=== PATIENT | female | born 1990 | race Hispanic/Latino ===

== ENCOUNTER 2019-03-17 19:46 | Emergency (ER) | payer OTHER ==
[2019-03-17 20:06] LABS: APPEARANCE,URINE Clear (CLEAR); BILIRUBIN,URINE Negative (NEGATIVE); COLOR,URINE Yellow (YELLOW); GLUCOSE, URINE (UA) Negative (NEGATIVE); KETONES,URINE Negative (NEGATIVE); LEUKOCYTE ESTERASE ,URINE Moderate (NEGATIVE); NITRATE,URINE Negative (NEGATIVE); OCCULT BLOOD,URINE Negative (NEGATIVE); PH,URINE 7.5 (5.0-8.0); PROTEIN,URINE Negative (NEGATIVE); UROBILINOGEN,URINE 0.2 mg/dL (0.2-1.0)
[2019-03-17 20:08] LABS: HCG,QUAL RESULT NEGATIVE (NEGATIVE)
[2019-03-17] MEDS ORDERED: KETOROLAC TROMETHAMINE 30MG/ML ONE (20:12)
[2019-03-17] MEDS ORDERED: SODIUM CHLORIDE 0.9% 1000ML 1,000 ML IV ONE (20:12)
[2019-03-17] MEDS ORDERED: ONDANSETRON HCL 4 MG/2 ML VIAL ONE (20:12)
[2019-03-17 20:19] LABS: BACTERIA,URINE Few /HPF (None Seen); TRICHOMONAS,URINE Few /LPF (None Seen)
[2019-03-17 20:20] LABS: SQUAMOUS EPITHELIAL CELL,UR Few /HPF (0-2)
[2019-03-17 20:21] LABS: MUCUS,URINE Few LPF (None Seen)
[2019-03-17 20:25] LABS: BASOPHILS % (AUTO) 0.3 % (0.0-5.0); EOSINOPHILS % (AUTO) 0.1 % (0.0-8.0); HEMATOCRIT 38.8 % (36-48); MEAN CORPUSCULAR HEMOGLOBIN 24.3 pg (27.0-33.0); MEAN CORPUSCULAR HGB CONC 31.2 g/dL (32.0-36.0); MEAN CORPUSCULAR VOLUME 77.9 fL (79-99); MONOCYTES % (AUTO) 5.4 % (3.0-13.0); NEUTROPHILS % (AUTO) 70.9 % (40.0-77.0); PLATELET COUNT (AUTO) 382 K/uL (130-400); RED BLOOD CELL COUNT(AUTO) 4.98 MIL/uL (4.00-5.50); RED CELL DISTRIBUTION WIDTH 14.5 % (11.0-15.5); WHITE BLOOD COUNT (AUTO) 15.1 K/uL (4.8-10.8)
[2019-03-17 20:37] LABS: CREATININE 0.8 mg/dL (0.5-1.5)
[2019-03-17 20:41] LABS: ALBUMIN 3.8 g/dL (3.5-5.0); BILIRUBIN,DIRECT 0.3 mg/dL (0.0-0.3); TOTAL PROTEIN, SERUM 8.4 g/dL (6.0-8.3)
[2019-03-17 21:37] LABS: AMPHET/METH SCREEN,URINE NEGATIVE (NEGATIVE); BARBITURATE SCREEN, URINE NEGATIVE (NEGATIVE); BENZODIAZEPINES SCREEN,URINE NEGATIVE (NEGATIVE); CANNABINOID SCREEN,URINE NEGATIVE (NEGATIVE); COCAINE SCREEN,URINE NEGATIVE (NEGATIVE); OPIATE SCREEN,URINE NEGATIVE (NEGATIVE); PHENCYCLIDINE SCREEN,URINE NEGATIVE (NEGATIVE)
== END 2019-03-17 22:23 | disposition home or self-care (01) ==
LOC: EDH 19:46
DX: K29.00 Acute gastritis without bleeding (principal)
CPT/HCPCS: 36415; 74018; 76705; 80048; 80076; 80305; 81001; 81025; 82550; 83690; 85025; 96361; 96374; 96375; 99285; J1885; J2405; J7030